=== PATIENT | male | born 1965 | race Caucasian/White ===

== ENCOUNTER 2016-08-08 21:59 | Emergency (ER) ==
[2016-08-08 22:10] VITALS: BP 105/66; TEMP 97.8; BMI 23.4
[2016-08-08] MEDS ORDERED: BOOSTRIX IM ONE (22:26)
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
[2016-08-08] MEDS ORDERED: LIDOCAINE 1 % AMP 5 ML (SUTURES) SUBCUT STA (23:17)
[2016-08-08] MEDS ORDERED: KEFLEX PO STA (23:35)
--- NOTE | 2016-08-09 04:37 | DI ---
EXAM: Left hand, three views, 08/08/2016 HISTORY: Foreign body COMPARISON: None. FINDINGS / IMPRESSION: A rounded metallic density foreign body is present within the soft tissues a t the lateral aspect of the hand. This is located between the first and second metacarpal. The oss eous structures appear intact without fracture or dislocation. No acute osseous abnormality.
== END 2016-08-08 23:55 | disposition home or self-care (01) ==
LOC: ED 21:59
DX: S61.442A Puncture wound with foreign body of left hand, initial encounter (principal); W34.010A Accidental discharge of airgun, initial encounter; F17.210 Nicotine dependence, cigarettes, uncomplicated
CPT/HCPCS: 90471; 99283

== ENCOUNTER 2018-07-22 15:46 | Emergency (ER) ==
[2018-07-22 15:49] VITALS: BP 180/93; TEMP 98.9; BMI 25.1
--- NOTE | 2018-07-22 19:23 | DI ---
EXAM: Right thumb/first finger three view HISTORY: Pain. COMPARISON: None available at the time of dictation. FINDINGS: No definitive right first finger acute fracture or dislocation is identified. There is moderate to s evere appearing joint space loss seen at the right first carpal - metacarpal joint suggesting degener ative arthritis. No definitive soft tissue radiodense foreign bodies are identified. IMPRESSION: No right first finger acute fracture or dislocation identified. 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
--- NOTE | 2018-07-22 19:23 | DI ---
EXAM: Right wrist three view HISTORY: Right wrist pain after trauma. COMPARISON: None available at the time of dictation. FINDINGS: No definitive right wrist acute fracture or dislocation is identified. There is moderate to severe j oint space loss seen at the right scaphoid - trapezium joint and right first carpal - metacarpal join t suggesting degenerative arthritis. Chronic calcifications at the dorsal aspect of the right carpal bones may represent degenerative calcifications No definitive soft tissue radiodense foreign amena s are identified. IMPRESSION: No right wrist acute fracture or dislocation identified. Degenerative changes as detailed.
--- NOTE | 2018-07-22 19:45 | ED.PDOC ---
General ED Provider: Dr. YADI FLYNN-ER Chief Complaint: Wrist Pain/Injury Stated Complaint: my thumb hurts for several weeks Time Seen by Physician: 19:00 Mode of Arrival: Walk-In Information Source: Patient Exam Limitations: No limitations Nursing and Triage Documentation Reviewed and Agree: Yes Does patient meet sepsis criteria?: No System Inflammatory Response Syndrome: Not Applicable Sepsis Protocol: For patient's 13 years and over: Temp is 96.8 and below OR 101 and greater Pulse >90 BPM Resp >20/minute Acutely Altered Mental Status Are patient's symptoms suggestive of a new infection, such as: -Pneumonia -Skin, Soft Tissue -Endocarditis -UTI -Bone, Joint Infection -Implantable Device -Acute Abdominal Infection -Wound Infection -Meningitis -Blood Stream Catheter Infection -Unknown Musculoskeletal Complaint Exam - Hand/Wrist Complaint/Exam Location of Pain: Reports: Right, Wrist Mechanism of Injury: Reports: Trauma Onset/Duration: one year Symptoms Are: Still present Onset of Pain: Reports: Immediate Initial Severity: Mild Current Severity: Moderate Location: Reports: Discrete Character: Reports: Dull, Aching Aggravating: Reports: Movement Associated Signs and Symptoms: Denies: Swelling, Redness, Bruising, Fever, Weakness, Numbness, Tingling Tenderness: Present: Carpal, Metacarpal Compartment Syndrome Risk Factors: Present: Pain Differential Diagnoses: Contusion, Closed Fracture Review of Systems - Review Of Systems Constitutional: Reports: No symptoms Eyes: Reports: No symptoms Ears, Nose, Mouth, Throat: Reports: No symptoms Respiratory: Reports: No symptoms Cardiac: Reports: No symptoms GI: Reports: No symptoms : Reports: No symptoms Musculoskeletal: Reports: Joint pain, Muscle pain Skin: Reports: No symptoms Neurological: Reports: No symptoms Endocrine: Reports: No symptoms Hematologic/Lymphatic: Reports: No symptoms All Other Systems: Reviewed and Negative Past Medical History - Past Medical History Previously Healthy: No Endocrine: Reports: None Cardiovascular: Reports: None Respiratory: Reports: None Hematological: Reports: None Gastrointestinal: Reports: None Genitourinary: Reports: None Neuro/Psych: Reports: None Musculoskeletal: Reports: None Cancer: Reports: None - Surgical History General Surgical History: Reports: None - Family History Family History: Reports: None - Social History Smoking Status: Current every day smoker, Light tobacco smoker Hx Substance Use: No Alcohol Screening: Occasionally Physical Exam - Physical Exam Appearance: Well-appearing, No pain distress, Well-nourished Eyes: EDILIA, EOMI, Conjunctiva clear ENT: Ears normal, Nose normal, Oropharynx normal Neck: Supple Respiratory: Airway patent, Breath sounds clear, Breath sounds equal, Respirations nonlabored Cardiovascular: RRR GI/: Soft, Nontender, No masses, Bowel sounds normal, No Organomegaly Musculoskeletal: Limited ROM Skin: Warm Neurological: Sensation intact Psychiatric: Affect appropriate, Mood appropriate Interpretation - Radiology Interpretation Radiology Interpretation By: Radiologist Radiology Results: Positive Critical Care Note - Critical Care Note Total Time (mins): 0 Course - Course Orders, Labs, Meds: Orders Category Date Time Status THUMB, RIGHT Stat RADS 07/22/18 18:22 Completed WRIST, RIGHT 3 VIEWS Stat RADS 07/22/18 18:22 Completed Vital Signs: Temp Pulse Resp BP Pulse Ox 07/22/18 15:46 98.9 F 65 16 180/93 H 96 Departure - Departure Time of Disposition: 19:46 Disposition: HOME SELF-CARE Discharge Problem: Pain in wrist Instructions: Osteoarthritis (ED), Arthritis (ED) Condition: Good Pt referred to PMD for follow-up: Yes IPMP verified?: No Additional Instructions: perocet 7.5mg q 4hrs prn pain #15---f/u with your pcp--your will need referral to hand specialist Allergies/Adverse Reactions: Allergies acetaminophen [From Lortab] Adverse Reaction (Verified 07/22/18 15:49) Hives hydrocodone [From Lortab] Adverse Reaction (Verified 07/22/18 15:49) Hives Home Medications: Ambulatory Orders 1 [No Reported Medications] 07/22/18 Disposition Discussed With: Patient
== END 2018-07-22 19:50 | disposition home or self-care (01) ==
LOC: ED 15:46
DX: S69.91XA Unspecified injury of right wrist, hand and finger(s), initial encounter (principal); F17.210 Nicotine dependence, cigarettes, uncomplicated
CPT/HCPCS: 99282